=== PATIENT | female | born 1965 | race African-American/Black ===

== ENCOUNTER 2017-01-09 09:00 | Day surgery (SDC) | payer MEDICARE ==
[~2017-01-09] VITALS: Ht 152.4 cm; Wt 140.9 kg
[2017-01-09] MEDS ORDERED: PREMARIN45 GM VG (10:15)
[2017-01-09] MEDS ORDERED: METOPROLOL TAR100 M1 PO (10:15)
[2017-01-09] MEDS ORDERED: AMITRIPTYLINE H50 MG PO (10:16)
[2017-01-09] MEDS ORDERED: PRAVASTATIN SOD10 MG PO (10:16)
[2017-01-09] MEDS ORDERED: LUNESTA3 MG PO (10:17)
[2017-01-09] MEDS ORDERED: HYZAAR 100-12.51 TAB PO (10:17)
[2017-01-09] MEDS ORDERED: JANUVIA100 MG PO (10:18)
[2017-01-09] MEDS ORDERED: AMOXICILLIN500 M1 PO (10:18)
[2017-01-09] MEDS ORDERED: HYDROCODONE-APA1 TAB PO (10:19)
[2017-01-09 10:24] LABS: BASOPHILS 0.1 % (0-2); EOSINOPHILS 1.5 % (0-7); HEMATOCRIT 38.3 % (36.0-48.0); HEMOGLOBIN 12.5 g/dL (12-16); IMMATURE GRANULOCYTES 0.1 % (0-5); LYMPHOCYTES 27.1 % (15-50); MCH 26.6 pg (26.0-34.0); MCHC 32.6 g/dL (31.0-37.0); MCV 81.5 fL (80.0-100.0); MONOCYTES 4.2 % (2-11); PLATELET COUNT 223 10x3/uL (130-400); RDW 15.5 % (11.5-14.5)
[2017-01-09 10:27] VITALS: BP 123/81; Ht 152.4 cm; Wt 140.9 kg
[2017-01-09 10:33] LABS: ANION GAP 8.7 mmol/L (8-16); CALCIUM 8.9 mg/dL (8.5-10.1); CARBON DIOXIDE 30.8 mmol/L (21.0-32.0); CREATININE - SERUM 1.1 mg/dL (0.6-1.3); POTASSIUM - SERUM 3.5 mmol/L (3.5-5.1)
--- NOTE | 2017-01-11 07:42 | OP ---
PATIENT NAME: ANISA HANKINS MEDICAL RECORD: [id number] :65 [facility] AD[facility] DATE: SURGEON: DANNY PULIDO DO DATE OF OPERATION: 01/09/2017 PROCEDURE: Colonoscopy with biopsy. INDICATIONS: Personal history of colon polyps. SCOPE: Olympus video pediatric colonoscope. MEDICATIONS: Propofol 300 mg IV per anesthesia. INDICATIONS FOR ANESTHESIA: High blood pressure and obstructive sleep apnea. WITHDRAWAL TIME: 11 minutes. ESTIMATED BLOOD LOSS: Minimal. FINDINGS: Informed consent was given. The patient was made comfortable with the above medication. After reaching an adequate level of sedation by slow IV push, the patient was placed on her left side. A digital rectal examination was performed and was normal. The endoscope was then advanced under direct visualization through the anus to the cecum, evidenced by the appendiceal orifice and ileocecal valve. The endoscope was slowly withdrawn and mucosa was carefully examined. There was evidence of severe diverticulosis involving the entire colon. This included mixed small and large mouth diverticuli. There was no evidence of diverticulitis or bleeding. There were 2 polyps visualized on this examination. The first was located in the sigmoid colon. It measured approximately 4 mm in size and was benign and sessile appearing. It was removed with cold forceps completely. The second polyp was located in the rectum. It measured approximately 3 mm in size and was removed in 1 piece with cold forceps. Retroflexion was performed in the rectum. Medium sized internal hemorrhoids were visualized. The hemorrhoids were not bleeding and showed no bleeding stigmata. The endoscope was then withdrawn from the patient. The patient tolerated the procedure well and there were no complications. IMPRESSION: 1. Pancolonic severe diverticulosis. 2. Two polyps located as described above. Both removed with cold forceps and completely retrieved. 3. Internal hemorrhoids without bleeding or bleeding stigmata. PLAN AND RECOMMENDATIONS: 1. Discharge home when recovery parameters are met. 2. High fiber diet for diverticuli and hemorrhoids. 3. Continue current medications. 5. Notify the clinic if hemorrhoids become symptomatic. 6. Recall colonoscopy in 5 years for continued surveillance regarding a personal history of polyps. TRANSINT:[id number] Voice Confirmation ID: [id number] DOCUMENT ID: [id number] OPERATIVE REPORT [id number] ANISA HANKINS DANNY PULIDO DO at 0742 CC: [id number] DICTATION DATE: 01/09/17 1230 [employer] CONS[employer]ANT: 01/09/172031 [facility] [place] 01/09/17 [facility] [address] [place] [address]
== END 2017-01-09 13:40 | disposition home or self-care (01) ==
LOC: D.OPS 09:00
PROVIDERS: Anesthesiology
DX: K57.30 Diverticulosis of large intestine without perforation or abscess without bleeding (principal); D12.5 Benign neoplasm of sigmoid colon; K62.1 Rectal polyp; K64.8 Other hemorrhoids; Z01.812 Encounter for preprocedural laboratory examination; I10 Essential (primary) hypertension; Z86.010 Personal history of colon polyps; G47.33 Obstructive sleep apnea (adult) (pediatric)